=== PATIENT | female | born 1970 | race Caucasian/White ===

== ENCOUNTER 2017-04-06 17:55 | Emergency (ER) | payer BC ==
[~2017-04-06] VITALS: Ht 165.1 cm; Wt 59.0 kg
[2017-04-06 18:00] VITALS: BP_SYST 133
--- NOTE | 2017-04-06 18:08 | NUR ---
Placed in room 4 . Placed on child monitor, blood pressure machine and pulse oximeter. To gown for exam. Side rails up. Report given to Zen OJEDA.
--- NOTE | 2017-04-06 18:10 | NUR ---
ER Dr. Ferrell at bedside examining patient.
--- NOTE | 2017-04-06 18:12 | NUR ---
Pt presents to ER c/o chest pain that began yesterday around 1200. Pt states that pain is on R side of chest and radiates to R arm, 5/10 pain scale. Pt denies SOB, N/V. Pt denies any significant medical history, AOX4, respirations even and unlabored, NKDA, at bedside.
--- NOTE | 2017-04-06 18:33 | NUR ---
Laboratory at bedside for blood draw.
[2017-04-06 18:52] LABS: BASOPHILS % (AUTO) 0.3 % (0.0-2.0); EOSINOPHILS % (AUTO) 0.3 % (0.0-4.0); HEMATOCRIT 40.4 % (36-48); HEMOGLOBIN 13.7 g/dL (12.0-16.0); LYMPHOCYTES # (AUTO) 2.2 K/uL (1.0-5.5); LYMPHOCYTES % (AUTO) 29.1 % (20.5-51.5); MEAN CORPUSCULAR HEMOGLOBIN 30 pg (27-31); MEAN CORPUSCULAR HGB CONC 34 % (32-36); MEAN CORPUSCULAR VOLUME 88 fL (79.0-98.0); MONOCYTES # (AUTO) 0.6 K/uL (0.0-1.0); MONOCYTES % (AUTO) 7.7 % (1.7-9.3); NEUTROPHILS # (AUTO) 4.9 K/uL (1.8-7.7); NEUTROPHILS % (AUTO) 62.6 % (40.0-70.0); PLATELET COUNT (AUTO) 225 K/uL (130-430); RED CELL DISTRIBUTION WIDTH 11.3 % (9.0-15.0); WHITE BLOOD COUNT (AUTO) 7.7 K/uL (4.8-10.8)
[2017-04-06 19:03] LABS: CALCIUM 10.1 mg/dL (8.4-11.0); CREATININE 0.64 mg/dL (0.55-1.30); PROTHROMBIN TIME 10.3 SECS (9.5-12.5)
[2017-04-06 19:08] LABS: TOTAL BILIRUBIN 0.4 mg/dL (0.0-1.0)
[2017-04-06] MEDS ORDERED: LORazepam 1 MG TABLET PO ONE (19:15)
--- NOTE | 2017-04-06 19:37 | NUR ---
Patient given written and verbal discharge instructions and verbalizes understanding. ER MD Baldwin discussed with patient the results and treatment provided. Patient in stable condition. ID arm band removed. Rx of Ativan given. Patient educated on pain management and to follow up with PMD. Pain Scale 0. Opportunity for questions provided and answered.
[2017-04-06 22:10] VITALS: BP_SYST 129
== END 2017-04-06 22:10 | disposition home or self-care (01) ==
LOC: SED 17:55
DX: R07.9 Chest pain, unspecified (principal); Z98.890 Other specified postprocedural states
CPT/HCPCS: 36415; 71045; 80053; 82550-TC; 84484; 84703; 85025; 85610-TC; 85730-TC; 93005; 99285